=== PATIENT | female | born 1955 | race Caucasian/White ===

== ENCOUNTER → 2018-04-07 08:07 | Outpatient (CLI) | payer OTHER, SELFPAY ==
--- NOTE | 2018-04-07 | DI.US.S_ITS ---
ULTRASOUND OF RIGHT BREAST: 04/07/2018 CLINICAL: Palpable right breast lump., Patient returns for a 6 month follow up of the right breast. Comparison is made to exams dated: 04/07/2018 mammogram, 09/28/2017 ultrasound, and 06/17/2017 mammogram - [facility]. Color flow ultrasound of the right breast was performed on the areas of interest. [place] scale images of the real-time examination were reviewed. The hyperechoic 0.8 cm x 0.6 cm x 0.8 cm mass in the right breast at 2 o'clock posterior depth 8 cm from the nipple is decreased in size. IMPRESSION: BENIGN There is no sonographic evidence of malignancy. The 0.8 cm x 0.6 cm x 0.8 cm mass in the right breast is consistent with fat necrosis and is benign. There is no mammographic or sonographic abnormality seen in the right breast to correspond with the palpable abnormality, however, clinical followup is recommended. A 1 year screening mammogram is recommended. This exam was interpreted at Station ID: [id number]. Electronically Signed By: Jennifer Rivera M.D. lk/:04/07/2018 11:04:24 copy to: CYNTHIA ANTUNEZ letter sent: Clinical Evaluation Ultrasound BI-RADS: 2 Benign
--- NOTE | 2018-04-07 | DI.MG.S_ITS ---
UNILATERAL RIGHT DIGITAL DIAGNOSTIC MAMMOGRAM 3D/2D SHORT-TERM FOLLOW-UP: 04/07/2018 CLINICAL: Patient returns for a 6 month follow up of the right breast. New right breast lump. Comparison is made to exams dated: 06/17/2017 mammogram, 07/20/2016 mammogram, and 07/11/2015 mammogram - [facility]. The tissue of the right breast is predominantly fatty. No significant masses, calcifications, or other findings are seen in the breast. IMPRESSION: INCOMPLETE: NEEDS ADDITIONAL IMAGING EVALUATION There is no mammographic abnormality seen in the right breast to correspond with the palpable abnormality, however, ultrasound is recommended. This exam was interpreted at Station ID: [id number]. NOTE: For mammograms, a report in lay terms will be sent to the patient. Approximately 15% of breast malignancies will not be visualized mammographically. In the management of a palpable breast mass, a negative mammogram must not discourage biopsy of a clinically suspicious lesion. Electronically Signed By: Jennifer prasad/buzz:04/07/2018 08:55:48 copy to: CYNTHIA ANTUNEZ letter sent: Additional Imaging Needed ACR BI-RADS Category 0: Incomplete 3340F
== END ==
PROVIDERS: Family Provider Family Medicine Geriatric Medicine; PCP Family Medicine Geriatric Medicine; Visit Provider Physician Assistant Medical
DX: R92.8 Other abnormal and inconclusive findings on diagnostic imaging of breast (principal); N64.1 Fat necrosis of breast
CPT/HCPCS: 76642; 77065; G0279

== ENCOUNTER → 2018-08-23 09:55 | Outpatient (CLI) | payer OTHER, SELFPAY ==
--- NOTE | 2018-08-23 | DI.MG.S_ITS ---
BILATERAL DIGITAL SCREENING MAMMOGRAM 3D/2D WITH CAD: 08/23/2018 CLINICAL: Routine screening. Family history of breast cancer. Comparison is made to exams dated: 06/17/2017 mammogram, 07/20/2016 mammogram, and 07/11/2015 mammogram - [facility]. The tissue of both breasts is predominantly fatty. Current study was also evaluated with a Computer Aided Detection (CAD) system. There are stable benign calcifications in both breasts. No significant masses, calcifications, or other findings are seen in either breast. There has been no significant interval change. IMPRESSION: There is no mammographic evidence of malignancy. A 1 year screening mammogram is recommended. NOTE: For mammograms, a report in lay terms will be sent to the patient. Approximately 15% of breast malignancies will not be visualized mammographically. In the management of a palpable breast mass, a negative mammogram must not discourage biopsy of a clinically suspicious lesion. Electronically Signed By: Gareth trinh/buzz:08/23/2018 12:49:50 copy to: CYNTHIA ANTUNEZ letter sent: Normal Exam ACR BI-RADS Category 2: Benign Finding(s) 3342F
== END ==
PROVIDERS: PCP Family Medicine Geriatric Medicine; Visit Provider Physician Assistant
DX: Z12.31 Encounter for screening mammogram for malignant neoplasm of breast (principal); Z80.3 Family history of malignant neoplasm of breast
CPT/HCPCS: 77063; 77067